=== PATIENT | male | born 1935 | race Asian ===

== ENCOUNTER 2017-09-23 12:23 | Emergency (ER) | payer MEDICARE, OTHER ==
[2017-09-23 12:54] LABS: ADD MAN DIFF? NO
[2017-09-23 13:03] LABS: BASOPHILS % 0.2 % (0.0-2.0); EOSINOPHILS # 0.1 10^3/ul (0.0-0.5); EOSINOPHILS % 1.4 % (0.0-7.0); HEMATOCRIT 44.5 % (42.0-52.0); HEMOGLOBIN 14.2 g/dl (14.0-18.0); LYMPHOCYTES # 1.8 10^3/ul (0.8-2.9); LYMPHOCYTES % 19.8 % (15.0-51.0); MEAN CORPUSCULAR HEMOGLOBIN 30.1 pg (29.0-33.0); MEAN CORPUSCULAR HGB CONC 31.9 g/dl (32.0-37.0); MEAN CORPUSCULAR VOLUME 94.3 fl (82.0-101.0); MEAN PLATELET VOLUME 10.1 fl (7.4-10.4); MONOCYTE # 0.6 10^3/ul (0.3-0.9); NEUTROPHIL # 6.7 10^3/ul (1.6-7.5); NEUTROPHILS % 72.2 % (39.0-77.0); PLATELET COUNT 259 10^3/UL (140-415); RED BLOOD COUNT 4.72 10^6/ul (4.70-6.10); RED CELL DISTRIBUTION WIDTH 14.1 % (11.5-14.5)
[2017-09-23 13:03] LABS: WHITE BLOOD COUNT 9.2 10^3/ul (4.8-10.8)
[2017-09-23] MEDS: SOD CHLORIDE 0.9% 1,000 ML IV (13:06)
[2017-09-23 13:08] LABS: INR 1.08; PROTIME 14.1 Sec (11.9-14.9); PT RATIO 1.1
[2017-09-23 13:10] LABS: PARTIAL THROMBOPLASTIN TIME 31.1 Sec (25.0-35.0)
[2017-09-23 13:11] LABS: ANION GAP 12 (8-16); BLOOD UREA NITROGEN 19 mg/dl (7-20); CALCIUM 8.9 mg/dl (8.4-10.2); CARBON DIOXIDE 28 mmol/L (21-31); CHLORIDE 108 mmol/L (97-110); CHOL/HDL RATIO 3.1 RATIO; CHOLESTEROL 131 mg/dl (100-200); CREATININE 1.32 mg/dl (0.61-1.24); GLUCOSE 119 mg/dl (70-220); HDL CHOLESTEROL 41 mg/dl (31-75); LDL CHOLESTEROL,CALCULATED 73 mg/dl; POTASSIUM 4.1 mmol/L (3.5-5.1); SODIUM 144 mmol/L (135-144); TRIGLYCERIDES 87 mg/dl (0-149)
[2017-09-23 13:24] LABS: TROPONIN-I 0.027 ng/ml (0.000-0.120)
[2017-09-23] MEDS: hydrALAzine 20 MG INJ IV (13:59)
[2017-09-23] MEDS: ASPIRIN 300 MG SUPP PR (13:59)
[2017-09-23 16:35] LABS: HEMOGLOBIN A1C 6.2 % (0-5.9)
== END 2017-09-23 17:18 ==
LOC: E/R 12:23
DX: I63.512 Cerebral infarction due to unspecified occlusion or stenosis of left middle cerebral artery (principal); I25.10 Atherosclerotic heart disease of native coronary artery without angina pectoris; I10 Essential (primary) hypertension; R40.2132 Coma scale, eyes open, to sound, at arrival to emergency department; R40.2352 Coma scale, best motor response, localizes pain, at arrival to emergency department; R40.2242 Coma scale, best verbal response, confused conversation, at arrival to emergency department; Z79.82 Long term (current) use of aspirin; Z98.61 Coronary angioplasty status
CPT/HCPCS: 36415; 70450; 71045; 80048; 80061; 83036; 84484; 85025; 85610; 85730; 93005; 96374; 99285-25